=== PATIENT | male | born 1970 | race Caucasian/White ===

== ENCOUNTER → 2016-11-30 | Outpatient (CLI) | payer BC ==
--- NOTE | 2016-11-30 12:55 | NM ---
EXAMINATION: Nuclear medicine myocardial perfusion study with exercise stress test. HISTORY: Chest pain. PROCEDURE: Patient exercised according to Sergey protocol for 9 minutes and 46 seconds and achieved maximal hear t rate of 160 beats per minute. Adequate exercise. Following intravenous administration of 8.6 and 32.5 mCi of technetium 99m sestamibi, stress and r est SPECT images including gating imaging was performed. FINDINGS: Stress and rest myocardial SPECT images demonstrates mildly heterogeneous uptake within the left crystal tricular myocardium without evidence of reversible perfusion defects. Review of gated images demonstrates normal wall motion, contractility and wall thickening. The left ventricular ejection fraction is 49 %. The left ventricular chamber size is normal. IMPRESSION: 1. No evidence of myocardial ischemia. 2. Normal ventricular chamber size and function with borderline ejection fraction of 49 %.
--- NOTE | 2016-11-30 19:10 | PCM.PRNOTE ---
- Free Text/Narrative Note: Procedure: Cardiolite exercise stress test Resting blood pressure 122/82, pulse 59 Patient exercised per Sergey protocol 9 minutes and 46 seconds and achieved a maximum heart rate of 160 beats per minute which was 92% of age-predicted maximum heart rate. Mets: 10.1 double product 65058 Resting EKG revealed normal sinus rhythm With exertion, no significant ST-T changes were appreciated. Test stopped at target heart rate. No complaints of chest pain during exercise or recovery with an unremarkable recovery phase. Impression: #1. Negative stress test for ischemic ST-T changes 2. Fair exercise tolerance #3. Cardiolite portion of test pending
== END ==
LOC: MW.NM 06:46
PROVIDERS: ATTEND Internal Medicine
DX: R07.9 Chest pain, unspecified (principal)
CPT/HCPCS: 78452; 93017; A9500

== ENCOUNTER 2019-01-23 11:12 | Emergency (ER) | payer SELFPAY ==
--- NOTE | 2019-01-23 11:17 | EDM.PDOC ---
ED HPI GENERAL MEDICAL PROBLEM - General Stated Complaint: HIGH BLOOD PRESSURE Time Seen by Provider: 01/23/19 11:14 Source of Information: Reports: Patient History Limitations: Reports: No Limitations - History of Present Illness INITIAL COMMENTS - FREE TEXT/NARRATIVE: HISTORY AND PHYSICAL: History of present illness: Patient is a 48-year-old male who presents to the emergency room via EMS from the [facility] with complaints of hypertension. Patient states he has been traveling to and from the [facility] over the past nine months; and has been out of his antihypertensive medication. He doesn't recall which medications he was taking. Today he had went to the clinic for medication refill and was informed his blood pressure was 240/126. He is asymptomatic and offers no current complaints. They encourage that he come to the emergency room for further evaluation and management. Patient denies any fever, chills, headache, change in vision, syncope or near syncope. Denies any chest pain, back pain, shortness of breath or cough. Denies any abdominal pain, nausea, vomiting, diarrhea, constipation or dysuria. Has not noted any blood in urine or stool. Patient has been eating and drinking appropriately. Review of systems: As per history of present illness and below otherwise all systems reviewed and negative. Past medical history: As per history of present illness and as reviewed below otherwise noncontributory. Surgical history: As per history of present illness and as reviewed below otherwise noncontributory. Social history: See social history for further information Family history: As per history of present illness and as reviewed below otherwise noncontributory. Physical exam: General: Well-developed and well nourished 48-year-old male. Alert and oriented. Nontoxic appearing and in no acute distress. HEENT: Atraumatic, normocephalic, pupils equal and reactive bilaterally, negative for conjunctival pallor or scleral icterus, mucous membranes moist, TMs normal bilaterally, throat clear, neck supple, nontender, trachea midline. No drooling or trismus noted. No meningeal signs. No hot potato voice noted. Lungs: Clear to auscultation, breath sounds equal bilaterally, chest nontender. Heart: S1S2, regular rate and rhythm without overt murmur Abdomen: Soft, nondistended, nontender. Negative for masses or hepatosplenomegaly. Negative for costovertebral tenderness. Pelvis: Stable nontender. Genitourinary: Deferred. Rectal: Deferred. Skin: Intact, warm, dry. No lesions or rashes noted. Extremities: Atraumatic, moves all extremities per self without difficulty or deficits, negative for cords or calf pain. Neurovascular unremarkable. Neuro: Awake, alert, oriented. Cranial nerves II through XII unremarkable. Cerebellum unremarkable. Motor and sensory unremarkable throughout. Exam nonfocal. Notes: Patient reports he is asymptomatic and has had no symptoms while being out of his blood pressure medication. He states that he just returned home from the [facility] and went to the [facility] for medication refill. He is agreeable to routine lab work at this time. Patient's blood pressure has come down. He continues to be asymptomatic and would like to be discharged to home. I did offer admission, he declines. I will not refill his lisinopril as this is the only medication he can recall. We discussed the importance of medication compliance and follow-up with primary care. He has an appointment for follow up at the [facility] tomorrow morning with Dr Mckeon. Signs and symptoms that would prompt him to return to the emergency room were reviewed and discussed. Supportive care measures were reviewed and discussed. Voices understanding and is agreeable to plan of care. Denies any further questions or concerns at this time. Diagnostics: CBC, CMP, UA, EKG Therapeutics: Clonidine, Lisinopril Prescription: Lisinopril 10mg (#30) Impression: Medication non-compliance Uncontrolled Hypertension Plan: 1. Please take your blood pressure medications as directed. 2. Follow up with your primary care provider as directed 3. Return to the ED as needed as discussed Definitive disposition and diagnosis as appropriate pending reevaluation and review of above. - Related Data Allergies Allergy/AdvReac Type Severity Reaction Status Date / Time No Known Allergies Allergy Verified 01/23/19 11:18 Home Meds: Home Meds . [No Known Home Meds] 01/23/19 [History] ED ROS GENERAL - Review of Systems Review Of Systems: ROS reveals no pertinent complaints other than HPI. ED EXAM, GENERAL - Physical Exam Exam: See Below (See dictation) Course - Vital Signs Last Recorded V/S: Last Vital Signs Temp 98.2 F 01/23/19 11:16 Pulse 59 L 01/23/19 12:14 Resp 16 01/23/19 12:14 BP 195/104 H 01/23/19 12:14 Pulse Ox 97 01/23/19 12:14 - Orders/Labs/Meds Orders: Active Orders 24 hr Category Date Time Status EKG Documentation Completion [RC] STAT Care 01/23/19 11:14 Active Labs: Laboratory Tests 01/23/19 01/23/19 01/23/19 Range/Units 11:21 11:21 11:40 WBC 9.29 (4.0-11.0) K/uL RBC 5.19 (4.50-5.90) M/uL Hgb 16.6 (13.0-17.0) g/dL Hct 46.7 (38.0-50.0) % MCV 90.0 (80.0-98.0) fL MCH 32.0 (27.0-32.0) pg MCHC 35.5 (31.0-37.0) g/dL RDW Std Deviation 42.9 (28.0-62.0) fl RDW Coeff of Meli 13 (11.0-15.0) % Plt Count 194 (150-400) K/uL MPV 11.60 (7.40-12.00) fL Neut % (Auto) 51.1 (48.0-80.0) % Lymph % (Auto) 33.3 (16.0-40.0) % Mathews % (Auto) 10.7 (0.0-15.0) % Eos % (Auto) 4.3 (0.0-7.0) % Baso % (Auto) 0.6 (0.0-1.5) % Neut # (Auto) 4.8 (1.4-5.7) K/uL Lymph # (Auto) 3.1 H (0.6-2.4) K/uL Mathews # (Auto) 1.0 H (0.0-0.8) K/uL Eos # (Auto) 0.4 (0.0-0.7) K/uL Baso # (Auto) 0.1 (0.0-0.1) K/uL Nucleated RBC % 0.0 /100WBC Nucleated RBCs # 0 K/uL Sodium 141 (136-148) mmol/L Potassium 3.7 (3.5-5.1) mmol/L Chloride 103 (98-107) mmol/L Carbon Dioxide 30.1 (21.0-32.0) mmol/L BUN 15 (7.0-18.0) mg/dL Creatinine 1.1 (0.8-1.3) mg/dL Est Cr Clr Drug Dosing 79.45 mL/min Estimated GFR (MDRD) > 60.0 ml/min Glucose 103 (74-106) mg/dL Calcium 9.2 (8.5-10.1) mg/dL Total Bilirubin 0.5 (0.2-1.0) mg/dL AST 32 (15-37) IU/L ALT 49 (14-63) IU/L Alkaline Phosphatase 66 (46-116) U/L Total Protein 7.8 (6.4-8.2) g/dL Albumin 4.4 (3.4-5.0) g/dL Globulin 3.4 (2.6-4.0) g/dL Albumin/Globulin Ratio 1.3 (0.9-1.6) Urine Color YELLOW Urine Appearance CLEAR Urine pH 6.5 (5.0-8.0) Ur Specific [place] <= 1.005 (1.001-1.035) Urine Protein NEGATIVE (NEGATIVE) mg/dL Urine Glucose (UA) NEGATIVE (NEGATIVE) mg/dL Urine Ketones NEGATIVE (NEGATIVE) mg/dL Urine Occult Blood TRACE-INTACT H (NEGATIVE) Urine Nitrite NEGATIVE (NEGATIVE) Urine Bilirubin NEGATIVE (NEGATIVE) Urine Urobilinogen 0.2 (<2.0) EU/dL Ur Leukocyte Esterase NEGATIVE (NEGATIVE) Urine RBC 1-2 (0-2/HPF) Urine WBC 0-1 (0-5/HPF) Ur Epithelial Cells RARE (NONE-FEW) Urine Bacteria RARE (NEGATIVE) Meds: Medications Discontinued Medications Generic Name Dose Route Start Last Admin Trade Name Lincolnq PRN Reason Stop Dose Admin Clonidine HCl 0.1 mg 01/23/19 11:24 01/23/19 11:31 Catapres PO 01/23/19 11:25 0.1 mg ONETIME ONE Administration Lisinopril 10 mg 01/23/19 11:25 01/23/19 11:31 Prinivil PO 01/23/19 11:26 10 mg ONETIME ONE Administration Departure - Departure Time of Disposition: 12:38 Disposition: Home, Self-Care 01 Clinical Impression: Uncontrolled hypertension, Noncompliance with medication regimen Instructions: Hypertension, Himm-[id number]-Swuf Referrals: PCP,Unknown [Primary Care Provider] - Forms: ED Department Discharge Additional Instructions: The following information is given to patients seen in the emergency department who are being discharged to home. This information is to outline your options for follow-up care. We provide all patients seen in our emergency department with a follow-up referral. The need for follow-up, as well as the timing and circumstances, are variable depending upon the specifics of your emergency department visit. If you don't have a primary care physician on staff, we will provide you with a referral. We always advise you to contact your personal physician following an emergency department visit to inform them of the circumstance of the visit and for follow-up with them and/or the need for any referrals to a consulting specialist. The emergency department will also refer you to a specialist when appropriate. This referral assures that you have the opportunity for follow-up care with a specialist. All of these measure are taken in an effort to provide you with optimal care, which includes your follow-up. Under all circumstances we always encourage you to contact your private physician who remains a resource for coordinating your care. When calling for follow-up care, please make the office aware that this follow-up is from your recent emergency room visit. If for any reason you are refused follow-up, please contact the [facility] Emergency Department at and asked to speak to the emergency department charge nurse. [facility] [address] [place] [address] [place] [address] 1. Please take your blood pressure medications as directed. Continue to monitor closely. 2. Follow up with your primary care provider as directed 3. Return to the ED as needed as discussed - My Orders Last 24 Hours: My Active Orders 01/23/19 11:14 EKG Documentation Completion [RC] STAT - Assessment/Plan Last 24 Hours: My Active Orders 01/23/19 11:14 EKG Documentation Completion [RC] STAT
[2019-01-23] MEDS ORDERED: cloNIDine 0.1 MG Tab PO ONE (11:24)
[2019-01-23] MEDS ORDERED: Lisinopril 10 MG Tab PO ONE (11:25)
[2019-01-23 11:54] LABS: CHLORIDE,CL 103 mmol/L (98-107); SODIUM,NA 141 mmol/L (136-148)
--- NOTE | 2019-01-23 12:13 | CR ---
EXAMINATION: Portable chest radiograph. HISTORY: Shortness of breath. FINDINGS: The trachea is midline. The cardiomediastinal silhouette is within normal limits. No pulmonary infiltrates, effusions or pneumothorax. Osseous structures appear unremarkable. IMPRESSION: No acute cardiopulmonary process.
== END 2019-01-23 12:50 | disposition home or self-care (01) ==
LOC: MW.ED 11:12
DX: I10 Essential (primary) hypertension (principal); Z91.19 Patient's noncompliance with other medical treatment and regimen
CPT/HCPCS: 36415; 71045; 80053; 81001; 85025; 93005; 99284; A9270

== ENCOUNTER 2019-05-29 16:58 | Emergency (ER) | payer OTHER ==
[2019-05-29] MEDS ORDERED: Labetalol 100 MG/20 ML MDV IVPUSH ONE (17:10)
[2019-05-29] MEDS ORDERED: Sodium Chloride 0.9% 2.5 ML Syringe FLUSH PRN (17:10)
[2019-05-29] MEDS ORDERED: Sodium Chloride 0.9% 10 ML Syringe FLUSH PRN (17:10)
--- NOTE | 2019-05-29 17:17 | EDM.PDOC ---
ED HPI GENERAL MEDICAL PROBLEM - General Chief Complaint: Cardiovascular Problem Stated Complaint: HIGH BLOOD PRESSURE Time Seen by Provider: 05/29/19 17:07 Source of Information: Reports: Patient History Limitations: Reports: No Limitations - History of Present Illness INITIAL COMMENTS - FREE TEXT/NARRATIVE: History of present illness: []Patient stopped smoking 5 weeks ago and 2 hours ago he started having chest tightness that lasted less than a minute and shortness of breath. He called the [facility] who requested he come in immediately to be evaluated. He was found to be hypertensive and sent to the emergency room. Received 0.2 mg of clonidine by mouth. Patient denies any chest pain or shortness of breath on arrival to the ED. His blood pressure on arrival was 230/120 without symptoms. Review of systems: As per history of present illness and below otherwise all systems reviewed and negative. Past medical history: As per history of present illness and as reviewed below otherwise noncontributory. Surgical history: As per history of present illness and as reviewed below otherwise noncontributory. Social history: No reported history of drug or alcohol abuse. Family history: As per history of present illness and as reviewed below otherwise noncontributory. Physical exam: General: Well developed, well nourished in NAD HEENT: Atraumatic, normocephalic, pupils reactive, negative for conjunctival pallor or scleral icterus, mucous membranes moist, throat clear, neck supple, nontender, trachea midline. Lungs: Clear to auscultation, breath sounds equal bilaterally, chest nontender. Rales or rhonchi Heart: S1S2, regular, negative for clicks, rubs, or JVD. No peripheral edema Abdomen: NABS, Soft, nondistended, nontender. Negative for masses or hepatosplenomegaly. Negative for costovertebral tenderness. Pelvis: Stable nontender. Genitourinary: Deferred. Rectal: Deferred. Extremities: Atraumatic, negative for cords or calf pain. Neurovascular unremarkable. Neuro: Awake, alert, oriented. Cranial nerves II through XII unremarkable. Cerebellum unremarkable. Motor and sensory unremarkable throughout. Exam nonfocal. Skin:warm and dry Diagnostics: CBC, EKG, chemistry, troponin-0.294, chest x-ray, BNP Therapeutics: Labetalol IV, aspirin, Nitropaste ED Course: Patient remained asymptomatic-pressure slowly coming down after labetalol and nitroglycerin [facility] Impression: NSTEMI, hypertensive emergency Prescriptions: None Plan: Transfer to [facility] via air ambulance Definitive disposition and diagnosis as appropriate pending reevaluation and review of above. - Related Data Allergies Allergy/AdvReac Type Severity Reaction Status Date / Time No Known Allergies Allergy Verified 05/29/19 17:07 Home Meds: Home Meds Lisinopril 10 mg PO DAILY 05/29/19 [History] Past Medical History Cardiovascular History: Reports: Hypertension Psychiatric History: Reports: Anxiety, PTSD Social & Family History - Family History Cardiac: Reports: CAD ED ROS GENERAL - Review of Systems Review Of Systems: See Below ED EXAM, GENERAL - Physical Exam Exam: See Below Course - Vital Signs Last Recorded V/S: Last Vital Signs Temp 96.8 F 05/29/19 17:09 Pulse 67 05/29/19 18:15 Resp 17 05/29/19 18:15 BP 193/105 H 05/29/19 18:15 Pulse Ox 96 05/29/19 18:15 - Orders/Labs/Meds Orders: Active Orders 24 hr Category Date Time Status EKG Documentation Completion [RC] STAT Care 05/29/19 17:10 Active Saline Lock Insert [OM.PC] Stat Oth 05/29/19 17:10 Ordered Labs: Laboratory Tests 05/29/19 05/29/19 05/29/19 Range/Units 17:08 17:08 17:08 WBC 9.15 (4.0-11.0) K/uL RBC 4.85 (4.50-5.90) M/uL Hgb 15.3 (13.0-17.0) g/dL Hct 43.6 (38.0-50.0) % MCV 89.9 (80.0-98.0) fL MCH 31.5 (27.0-32.0) pg MCHC 35.1 (31.0-37.0) g/dL RDW Std Deviation 41.0 (28.0-62.0) fl RDW Coeff of Meli 13 (11.0-15.0) % Plt Count 253 (150-400) K/uL MPV 11.20 (7.40-12.00) fL Neut % (Auto) 54.3 (48.0-80.0) % Lymph % (Auto) 31.1 (16.0-40.0) % Bryan % (Auto) 11.5 (0.0-15.0) % Eos % (Auto) 2.3 (0.0-7.0) % Baso % (Auto) 0.8 (0.0-1.5) % Neut # (Auto) 5.0 (1.4-5.7) K/uL Lymph # (Auto) 2.9 H (0.6-2.4) K/uL Bryan # (Auto) 1.1 H (0.0-0.8) K/uL Eos # (Auto) 0.2 (0.0-0.7) K/uL Baso # (Auto) 0.1 (0.0-0.1) K/uL Nucleated RBC % 0.0 /100WBC Nucleated RBCs # 0 K/uL Sodium 143 (136-148) mmol/L Potassium 3.4 L (3.5-5.1) mmol/L Chloride 106 (98-107) mmol/L Carbon Dioxide 25.9 (21.0-32.0) mmol/L BUN 17 (7.0-18.0) mg/dL Creatinine 1.0 (0.8-1.3) mg/dL Est Cr Clr Drug Dosing 93.28 mL/min Estimated GFR (MDRD) > 60.0 ml/min Glucose 119 H (74-106) mg/dL Calcium 8.9 (8.5-10.1) mg/dL Total Bilirubin 0.2 (0.2-1.0) mg/dL AST 32 (15-37) IU/L ALT 84 H (14-63) IU/L Alkaline Phosphatase 60 (46-116) U/L Troponin I 0.294 H* (0.000-0.056) ng/mL B-Natriuretic Peptide 17 (<100) PG/ML Total Protein 6.6 (6.4-8.2) g/dL Albumin 3.6 (3.4-5.0) g/dL Globulin 3.0 (2.6-4.0) g/dL Albumin/Globulin Ratio 1.2 (0.9-1.6) Meds: Medications Discontinued Medications Generic Name Dose Route Start Last Admin Trade Name Freq PRN Reason Stop Dose Admin Aspirin 324 mg 05/29/19 17:47 05/29/19 17:51 Aspirin PO 05/29/19 17:48 324 mg ONETIME ONE Administration Labetalol HCl 20 mg 05/29/19 17:10 05/29/19 17:16 Normodyne IVPUSH 05/29/19 17:11 20 mg ONETIME ONE Administration Protocol Nitroglycerin 0.4 mg 05/29/19 17:47 Nitrostat SL Q5M PRN Chest Pain Nitroglycerin 1 gm 05/29/19 17:54 05/29/19 18:02 Nitro-Bid 2% TOP 05/29/19 17:55 1 gm ONETIME ONE Administration Nitroglycerin Confirm 05/29/19 17:56 05/29/19 18:32 Nitro-Bid 2% Administered 05/29/19 17:57 Not Given Dose 1 gm .ROUTE .STK-MED ONE Sodium Chloride 10 ml 05/29/19 17:10 Saline Flush FLUSH ASDIRECTED PRN Keep Vein Open Sodium Chloride 2.5 ml 05/29/19 17:10 Saline Flush FLUSH ASDIRECTED PRN Keep Vein Open Departure - Departure Time of Disposition: 18:00 Disposition: DC/Tfer to Acute Hospital 02 Reason for Transfer *Q: Primary PCI Indicated Condition: Good Clinical Impression: NSTEMI (non-ST elevated myocardial infarction), Uncontrolled hypertension Referrals: PCP,None [Primary Care Provider] - Forms: ED Department Discharge - My Orders Last 24 Hours: My Active Orders 05/29/19 17:10 EKG Documentation Completion [RC] STAT Saline Lock Insert [OM.PC] Stat - Assessment/Plan Last 24 Hours: My Active Orders 05/29/19 17:10 EKG Documentation Completion [RC] STAT Saline Lock Insert [OM.PC] Stat
[2019-05-29 17:42] LABS: BLOOD UREA NITROGEN,BUN 17 mg/dL (7.0-18.0); CARBON DIOXIDE,CO2 25.9 mmol/L (21.0-32.0); CHLORIDE,CL 106 mmol/L (98-107); GLUCOSE RANDOM 119 mg/dL (74-106); POTASSIUM,K 3.4 mmol/L (3.5-5.1); SODIUM,NA 143 mmol/L (136-148)
--- NOTE | 2019-05-29 17:46 | CR ---
INDICATION: chest pain, sob TECHNIQUE: Chest 1 view. COMPARISON: FINDINGS: Cardiovascular and mediastinum: Heart size and vasculature are normal in caliber and appearance. Mediastinum is within normal limits. Lungs and pleural space: Lungs are clear. No sign of infiltrate or mass. No sign of pleural effusion. No pneumothorax. Bones and soft tissues: No significant findings. IMPRESSION: Unremarkable chest. Dictated by: Chan Simeon MD @ 05/29/2019 17:45:45 (Electronically Signed)
[2019-05-29] MEDS ORDERED: Nitroglycerin 0.4 MG Tab.SL SL PRN (17:47)
[2019-05-29] MEDS ORDERED: Aspirin 81 MG Tab.Chew PO ONE (17:47)
[2019-05-29] MEDS ORDERED: Nitroglycerin 2% Oint 1 GM UD Packet TOP ONE (17:54)
[2019-05-29] MEDS ORDERED: Nitroglycerin 2% Oint 1 GM UD Packet ONE (17:56)
== END 2019-05-29 18:32 ==
LOC: MW.ED 16:58
DX: I21.4 Non-ST elevation (NSTEMI) myocardial infarction (principal); I10 Essential (primary) hypertension; I16.1 Hypertensive emergency; Z79.899 Other long term (current) drug therapy; Z87.891 Personal history of nicotine dependence
CPT/HCPCS: 71045; 80053; 83880; 84484; 85025; 93005; 96374; 99285; A9270; J3490